=== PATIENT | female | born 1965 | race Caucasian/White ===

== ENCOUNTER 2022-07-01 15:05 | Emergency (ER) | payer BC ==
[2022-07-01] MEDS ORDERED: DIAZEPAM 10 MG/2 ML DISP.SYRIN IM ONE (15:15)
[2022-07-01] MEDS ORDERED: KETOROLAC TROMETHAMINE 30 MG VIAL IM ONE (15:15)
[2022-07-01] MEDS ORDERED: TETRACAINE HCL/PF 0.5% OPHTHALMIC DROPS 4 ML OP ONE (15:15)
[2022-07-01] MEDS ORDERED: IBUPROFEN 800 MG TABLET PO ONE (15:30)
[2022-07-01 19:30] VITALS: BP_SYST 148
== END 2022-07-01 16:45 | disposition left against medical advice (07) ==
LOC: SED 15:05
DX: T26.62XA Corrosion of cornea and conjunctival sac, left eye, initial encounter (principal); Z79.899 Other long term (current) drug therapy; X58.XXXA Exposure to other specified factors, initial encounter; Y93.89 Activity, other specified; Y92.89 Other specified places as the place of occurrence of the external cause; Y99.8 Other external cause status
CPT/HCPCS: 99284; J1885